=== PATIENT | male | born 1935 | race African-American/Black ===

== ENCOUNTER 2017-09-04 17:50 | Inpatient (IN) ==
--- NOTE | 2017-09-04 17:59 | Order Completion Report ---
See report scanned to EMR
[2017-09-04 18:28] LABS: Basophils # 0.1 10*3/uL (0.0-0.2); Eosinophils # 0.2 10*3/uL (0.0-0.87); Eosinophils % 3.7 % (0.00-10.9); Hematocrit 39.8 VOL% (42.0-52.0); Hemoglobin 13.6 GM/DL (14.0-18.0); Immature Granulocytes % 0.2 %; Immature Granulocytes Absolute 0.01 #; Lymphocytes # 1.7 10*3/uL (1.4-4.0); Lymphocytes % 26.8 % (21.2-54.2); Mean Corpuscular HGB Conc 34.2 GM/DL (32-36); Mean Corpuscular Hemoglobin 32 PG (27-34); Mean Corpuscular Volume 92.3 FL (87-102); Mean Platelet Volume 10.5 FL (9.6-12.0); Monocytes # 0.6 10*3/uL (0.11-0.8); Monocytes % 9.4 % (1.7-12.7); Neutrophils # 3.7 10*3/uL (1.4-7.4); Neutrophils % 58.9 % (38.7-73.9); Platelet Count 261 T/CUMM (130-400); Red Blood Count 4.31 MC/CUMM (3.8-5.5); Red Cell Distribution Width 13.3 % (9.3-17.3); White Blood Count 6.3 T/CUMM (4-12)
[2017-09-04 18:57] LABS: Alanine Aminotransferase 16 U/L (16-61); Albumin 3.7 G/DL (3.4-5.0); Alkaline Phosphatase 109 U/L (45-117); Aspartate Amino Transferase 19 U/L (0-37); Bilirubin,Total < 0.39 MG/DL (0.2-1.0); Blood Urea Nitrogen 43 MG/DL (7-18); Calcium 10.1 MG/DL (8.5-10.1); Glucose 128 MG/DL (74-106); Potassium 3.5 MMOL/L (3.5-5.1); Sodium 143 MMOL/L (136-145); Total Protein 8.6 G/DL (6.4-8.3)
[2017-09-04 18:58] LABS: Troponin I Only 0.074 NG/ML (0.00-0.045)
--- NOTE | 2017-09-04 19:00 | XRay Report ---
History: Chest pain Date: 09/04/2017 Study: Chest x-ray portable Comparison exam: No previous chest x-ray available There is mild cardiomegaly. There is no mediastinal mass. There is mild aortic arch calcification. The pulmonary vasculature is not engorged. The lungs are generally clear. There is no gross pleural effusion. A left subclavian dual-lead transvenous pacemaker is generally intact and in satisfactory position. There is mild thoracic spondylosis Impression: No definite acute process. Mild cardiomegaly. Pacemaker PROCEDURE INTERPRETED AT [facility] DEPARTMENT OF RADIOLOGY Final Report Signed by: Dr. Citlaly Schaffer
--- NOTE | 2017-09-04 19:03 | Emergency Department Note ---
Arrival - Arrival Chief Complaint: Chest Pain Stated Complaint: chest pains , sob ED Nursing Triage Note: C/o dull, right side chest pain and SOB-onset one hour ago. Denies nausea. Mode of Arrival: Wheelchair Time Seen by Provider: 09/04/17 18:17 - History of Present Illness HPI Narrative: This is an 81-year-old male of descent with a history of hypertension, type 2 diabetes, coronary artery disease, cardiomyopathy and congestive heart failure with the most recent echocardiogram in 2016 showing a left ventricular ejection fraction of 55%, pacer for sick sinus syndrome, chronic renal insufficiency stage III, hyperlipidemia, chronic atrial fibrillation on Coumadin , chronic constipation, multiple intermittent lower leg wounds due to peripheral vascular disease, progressive dementia who presents with chest pain and a feeling that he would pass out because of generalized the dizziness and weakness. The patient is still able to drive his car and drove to a friend's house. It was when he got out of his car and tried to stand up that he felt that he may pass out and came to the emergency department. Allergies/Adverse Reactions: Allergies Allergy/AdvReac Type Severity Reaction Status Date / Time No Known Allergies Allergy Verified 09/04/17 17:55 Home Medications: Home Medications Medication Instructions Recorded Confirmed Type Albuterol Sulfate [Ventolin HFA] 2 puffs PO Q4H PRN 09/04/17 09/04/17 History Amiodarone HCl [Pacerone] 200 mg PO DAILY 09/04/17 09/04/17 History Carvedilol [Coreg] 12.5 mg PO DAILY 09/04/17 09/04/17 History Donepezil [Aricept] 5 mg PO BEDTIME 09/04/17 09/04/17 History Furosemide Tab [Lasix Tab] 40 mg PO DAILY 09/04/17 09/04/17 History Glimepiride [Amaryl] 4 mg PO DAILY W/BREAKFAST 09/04/17 09/04/17 History Montelukast Tab [Singulair Tab] 10 mg PO DAILY 09/04/17 09/04/17 History Potassium Chloride 8 meq PO TID 09/04/17 09/04/17 History Pravastatin [Pravachol] 40 mg PO BEDTIME 09/04/17 09/04/17 History Tamsulosin [Flomax] 0.4 mg PO DAILY 09/04/17 09/04/17 History Warfarin [Coumadin] 4 mg PO MOTU 09/04/17 09/04/17 History Warfarin [Coumadin] 5 mg PO SUWETHFRSA 09/04/17 09/04/17 History cloNIDine TAB [Catapres Tab] 0.1 mg PO BEDTIME 09/04/17 09/04/17 History hydrALAZINE TAB [Apresoline Tab] 100 mg PO TID 09/04/17 09/04/17 History metOLazone [Metolazone] 2.5 mg PO DAILY 09/04/17 09/04/17 History Review of System - Review of System Constitutional: Absent: fever, night sweats Eyes: Absent: redness, vision change Head/Ears/Nose/Throat: Absent: epistaxis, nasal drainage Respiratory: Absent: respiratory distress Cardiovascular: Absent: dyspnea on exertion, orthopnea Gastrointestinal: Absent: diarrhea, constipation Genitourinary male: Absent: hematuria, discharge Musculoskeletal: Absent: arm pain, arthralgia Skin: Absent: change in color, change in hair/nails Neurological: Absent: headache, numbness Psychiatric: Absent: anxiety, depression Endocrine: Absent: polydipsia, polyuria Hematological/Lymphatic: Absent: easy bruising, lymphadenopathy Allergic/Immunologic: Absent: as per HPI, facial swelling Medical,Surgical,& Family Hx - Medical History Cardio: History of: Hypertension - Social History Smoking Status: Never smoker Frequency of Alcohol Use: None Type of Drug Use: None Exam Vital Signs: Vital Signs Temperature 97.9 F 09/05/17 03:44 Pulse Rate 60 09/05/17 03:44 Respiratory Rate 18 09/05/17 05:16 Blood Pressure 156/79 09/05/17 03:44 O2 Sat by Pulse Oximetry 98 09/05/17 03:44 - General General appearance: alert - Eye Eye exam: Present: PERRL, EOMI - ENT ENT exam: Present: normal exam, normal oropharynx - Neck Neck exam: Present: normal inspection, full ROM - Chest Chest inspection: Present: normal inspection, symmetric chest wall rise - Respiratory Respiratory exam: Present: normal lung sounds bilaterally - Cardiovascular Cardiovascular exam: Present: regular rate, normal rhythm - Abdominal Exam Abdominal exam: Present: soft, normal bowel sounds - Extremities Exam Extremities exam: Present: normal inspection, full ROM - Back Exam Back exam: Present: normal inspection, full ROM - Neurological Exam Neurological exam: Present: alert, oriented X3, CN II-XII intact - Psychiatric Psychiatric exam: Present: normal affect, normal mood - Skin Skin exam: Present: warm, dry Course Course Narrative: Because the patient had chest pain and slightly elevated troponin it seems reasonable that he should be admitted to the hospital for further evaluation and treatment. The case was discussed with Dr. Roberson. Orders were written for Dr. Roberson for admission. Results - Labs CBC & BMP: 09/04/17 18:16 09/04/17 18:16 Disposition Clinical Impression: Chest pain, Elevated troponin Disposition: Still a Patient Condition: Stable
[2017-09-04 20:22] LABS: INR 1.9; PT Patient Result 19.8 SECS; Partial Thromboplastin Time 36.1 SECS (0-40)
[2017-09-04] MEDS ORDERED: ONDANSETRON 4 MG/2 ML VIAL IV PRN (21:14)
[2017-09-04] MEDS: cloNIDine 0.1 MG TABLET PO SCH (23:11)
[2017-09-05] MEDS: DOCUSATE SODIUM 100 MG CAPSULE PO SCH ×2 (09:00→21:13)
[2017-09-05] MEDS: cloNIDine 0.1 MG TABLET PO SCH ×3 (09:00→21:13)
[2017-09-05] MEDS: PANTOPRAZOLE 40 MG TABLET PO SCH (09:00)
--- NOTE | 2017-09-05 11:13 | Internal Med History&Physical ---
Assessment and Plan (1) Hypertension Status: Chronic Current Visit: Yes Qualifiers: Hypertension type: essential hypertension Qualified Code(s): I10 - Essential (primary) hypertension (2) Diabetes Status: Chronic Current Visit: Yes Qualifiers: Diabetes mellitus type: type 2 Diabetes mellitus complication status: with hyperglycemia Diabetes mellitus tank terminal gauger insulin use: without senior living use Qualified Code(s): E11.65 - Type 2 diabetes mellitus with hyperglycemia (3) Obstructive sleep apnea Status: Chronic Current Visit: Yes (4) Chest pain Problem details: atypical Status: Acute Current Visit: Yes Qualifiers: Chest pain type: other chest pain Qualified Code(s): R07.89 - Other chest pain; R07.8 - Other chest pain (5) Elevated troponin Status: Chronic Current Visit: Yes (6) Chronic renal insufficiency, stage III (moderate) Problem details: Dr. Banegas Status: Chronic Current Visit: Yes History of Present Illness Chief complaint: chest pain History of present illness: Mr. Mishra is a 81 year old male with history of DM, HTN, chronic renal insufficiency, peripheral edema, COPD, asthmatic bronchitis, mild cardiomyopathy with LVEF 45%, severe left ventricular hypertrophy, paroxysmal atrial fibrillation and on Coumadin therapy, OA with joint replacements, dementia, who presented to ER with persistent intermittent chest pain. Have consulted Dr. Gomez to further evaluate. He has chronically elevated troponins. Also, consulting Dr. Tristan to further evaluate high suspicion of sleep apnea. Home Medications Medication Instructions Recorded Confirmed Type Albuterol Sulfate [Ventolin HFA] 2 puffs PO Q4H PRN 09/04/17 09/05/17 History Amiodarone HCl [Pacerone] 200 mg PO DAILY 09/04/17 09/05/17 History Carvedilol [Coreg] 12.5 mg PO DAILY 09/04/17 09/05/17 History Donepezil [Aricept] 5 mg PO BEDTIME 09/04/17 09/04/17 History Furosemide Tab [Lasix Tab] 40 mg PO DAILY 09/04/17 09/05/17 History Glimepiride [Amaryl] 4 mg PO DAILY W/BREAKFAST 09/04/17 09/05/17 History Montelukast Tab [Singulair Tab] 10 mg PO DAILY 09/04/17 09/05/17 History Potassium Chloride 8 meq PO TID 09/04/17 09/05/17 History Pravastatin [Pravachol] 40 mg PO BEDTIME 09/04/17 09/05/17 History Tamsulosin [Flomax] 0.4 mg PO DAILY 09/04/17 09/05/17 History Warfarin [Coumadin] 4 mg PO MOWEFR 09/04/17 09/05/17 History cloNIDine TAB [Catapres Tab] 0.1 mg PO BEDTIME 09/04/17 09/05/17 History hydrALAZINE TAB [Apresoline Tab] 100 mg PO TID 09/04/17 09/05/17 History metOLazone [Metolazone] 2.5 mg PO DAILY 09/04/17 09/05/17 History Allergies Allergy/AdvReac Type Severity Reaction Status Date / Time No Known Allergies Allergy Verified 09/04/17 17:55 Medical,Surgical,& Family Hx - Medical History Cardio: History of: Hypertension, Pacemaker, PVD Neurology: History of: Dementia, Migraine HEENT: History of: HEENT Problems (sinus drainage) Endocrine: History of: Diabetes Mellitus (NIDDM) Rheumatology: History of;: Gout Respiratory: History of: Asthma, COPD, Obstructive Sleep Apnea Genitourinary: History of: Prostate Problems Gastrointestinal: History of: GERD Musculoskeletal: History of: Back/Neck Problems, Musculoskeletal Problems Hematology: History of: Anemia - Surgical History Cardiac Surgeries: Sugical HX of: Cardiac Catheterization Orthopedic Surgeries: Surgical HX of;: Total Hip Replacement, Total Knee Replacement - Family History Family History: Reports;: Family Diabetes ("most everybody in the family") - Social History Smoking Status: Never smoker Frequency of Alcohol Use: None Type of Drug Use: None Lives With:: Alone Functional capacity: uses cane/walker - Constitutional Constitutional: Present: fatigue, weakness - Cardiovascular Cardiovascular: Present: chest pain with activity - Respiratory Respiratory: Present: dyspnea on exertion - Gastrointestinal Gastrointestinal: Absent: nausea, vomiting - Musculoskeletal Musculoskeletal: Present: arthralgias - Neurological Neurological: Present: memory loss Exam - Constitutional Vitals: Period Temp Pulse Resp BP Sys/Xavier Pulse Ox Last 24 Hr 97.2 F-98.0 F 60-96 17-23 144-224/75-102 93-100 General appearance: no acute distress - Head Head exam: Present: normocephalic - Eye Eye exam: Present: EOMI - Respiratory Respiratory exam: Present: clear to auscultation bilaterally - Cardiovascular Cardiovascular exam: Present: regular rate and rhythm - GI/Abdominal GI/Abdominal exam: Present: soft. Absent: tenderness - Extremities Exam Extremities exam: Present: edema (trace) - Neurological Exam Neurological exam: Present: alert - Psychiatric Psychiatric exam: Present: normal mood - Skin Skin exam: Present: warm, dry Results - Labs CBC & BMP: 09/04/17 18:16 09/04/17 18:16 - EKG EKG shows: sinus rhythm - Diagnostic Findings Procedure: Chest x-ray: report reviewed by me Quality Measures - VTE Contraindication to Pharmacological VTE Prophylaxis: High Risk of Bleeding
[2017-09-05 12:23] LABS: Magnesium 2.3 MG/DL (1.8-2.4); Uric Acid 12.5 MG/DL (3.5-7.2)
[2017-09-05] MEDS: CARVEDILOL 12.5 MG TABLET PO SCH (13:38)
[2017-09-05] MEDS: POTASSIUM CHLORIDE 10 MEQ TABLET PO SCH (13:38)
[2017-09-05] MEDS: FUROSEMIDE 40 MG TABLET PO SCH (13:38)
[2017-09-05] MEDS: MONTELUKAST 10 MG TABLET PO SCH (13:39)
[2017-09-05] MEDS: metOLazone 2.5 MG TABLET PO SCH (13:39)
[2017-09-05] MEDS: GLIMEPIRIDE 4 MG TABLET PO SCH (13:39)
[2017-09-05] MEDS: AMIODARONE 200 MG TABLET PO SCH (13:39)
--- NOTE | 2017-09-05 13:40 | Nuclear Medicine Report ---
History: Shortness of breath and chest pain Date: 09/05/2017 Study: Nuclear medicine ventilation/perfusion lung scan Comparison exam: No previous similar available Following the inhalation of 40 mCi aerosolized technetium 99m DTPA, images were obtained over the lungs in 6 projections for the purpose of a ventilation study. Then, following the IV administration of 5 mCi technetium 99m MAA, images were acquired of the lungs in the same projections for the purpose of a perfusion scan. There is no moderate or large unmatched segmental perfusion defect within either lung. There are some small areas of matched decreased ventilation and perfusion in the lower lobes in which the ventilation abnormalities are more numerous and larger than the perfusion abnormalities. There is no corresponding confluent infiltrate on the chest x-ray performed the following evening. Impression: The study is abnormal, but is considered low probability for pulmonary embolic disease PROCEDURE INTERPRETED AT [facility] DEPARTMENT OF RADIOLOGY Final Report Signed by: Dr. Citlaly Schaffer
--- NOTE | 2017-09-05 14:08 | Order Completion Report ---
See report scanned to EMR
--- NOTE | 2017-09-05 15:58 | Order Completion Report ---
See report scanned to EMR
[2017-09-05] MEDS: PRAVASTATIN 40 MG TABLET PO SCH (21:13)
[2017-09-05] MEDS: DONEPEZIL 5 MG TABLET PO SCH (21:13)
--- NOTE | 2017-09-05 21:48 | Order Completion Report ---
See report scanned to EMR
[2017-09-06] MEDS: ACETAMINOPHEN 325 MG TABLET PO PRN (05:10)
[2017-09-06 06:58] LABS: INR 1.7
[2017-09-06 07:12] LABS: Albumin 3.2 G/DL (3.4-5.0); Bilirubin,Total 0.5 MG/DL (0.2-1.0); Calcium 9.5 MG/DL (8.5-10.1); Osmolality,Calculated 291.3 MOS/KG (273-304); Phosphorous 2.9 MG/DL (2.5-4.9); Potassium 3.9 MMOL/L (3.5-5.1); Risk Ratio 2.43; VLDL CHOLESTEROL 33.4 MG/DL
[2017-09-06] MEDS: AMIODARONE 200 MG TABLET PO SCH (08:49)
[2017-09-06] MEDS: POTASSIUM CHLORIDE 10 MEQ TABLET PO SCH (08:49)
[2017-09-06] MEDS: GLIMEPIRIDE 4 MG TABLET PO SCH (08:50)
[2017-09-06] MEDS: FUROSEMIDE 40 MG TABLET PO SCH (08:50)
[2017-09-06] MEDS: metOLazone 2.5 MG TABLET PO SCH (08:50)
[2017-09-06] MEDS: PANTOPRAZOLE 40 MG TABLET PO SCH (08:50)
[2017-09-06] MEDS: ALLOPURINOL 100 MG TABLET PO SCH (08:50)
[2017-09-06] MEDS: DOCUSATE SODIUM 100 MG CAPSULE PO SCH ×2 (08:50→20:52)
[2017-09-06] MEDS: MONTELUKAST 10 MG TABLET PO SCH (08:50)
[2017-09-06] MEDS: CARVEDILOL 12.5 MG TABLET PO SCH (08:50)
--- NOTE | 2017-09-06 16:50 | Internal Med Progress Note ---
Assessment and Plan (1) Hypertension Status: Chronic Current Visit: Yes Qualifiers: Hypertension type: essential hypertension Qualified Code(s): I10 - Essential (primary) hypertension (2) Diabetes Status: Chronic Current Visit: Yes Qualifiers: Diabetes mellitus type: type 2 Diabetes mellitus complication status: with hyperglycemia Diabetes mellitus superintendent terminal insulin use: without mcc use Qualified Code(s): E11.65 - Type 2 diabetes mellitus with hyperglycemia (3) Obstructive sleep apnea Status: Chronic Current Visit: Yes (4) Chest pain Problem details: atypical Status: Acute Current Visit: Yes Qualifiers: Chest pain type: other chest pain Qualified Code(s): R07.89 - Other chest pain; R07.8 - Other chest pain (5) Elevated troponin Status: Chronic Current Visit: Yes (6) Chronic renal insufficiency, stage III (moderate) Problem details: Dr. Banegas Status: Chronic Current Visit: Yes Internal Medicine - PN: Subj Interval history: Mr. Mishra is a 81 year old male with history of DM, HTN, chronic renal insufficiency, peripheral edema, COPD, asthmatic bronchitis, mild cardiomyopathy with LVEF 45%, severe left ventricular hypertrophy, paroxysmal atrial fibrillation and on Coumadin therapy, OA with joint replacements, dementia, who presented to ER with persistent intermittent chest pain. Have consulted Dr. Gomez to further evaluate. He has chronically elevated troponins. Also, consulting Dr. Tristan to further evaluate high suspicion of sleep apnea. September 06: Feeling better today and more alert. Exam (Progress Note) - Constitutional Vitals: Period Temp Pulse Resp BP Sys/Xavier Pulse Ox Last 24 Hr 97.4 F-98.6 F 59-62 16-20 131-189/66-90 92-96 Exam: General appearance: no acute distress - Respiratory Respiratory exam: Present: clear to auscultation bilaterally - Cardiovascular Cardiovascular exam: Present: regular rate and rhythm - GI/Abdominal GI/Abdominal exam: Present: soft. Absent: tenderness - Extremities Exam Extremities exam: Present: no edema - Neurological Exam Neurological exam: Present: alert - Psychiatric Psychiatric exam: Present: normal mood - Skin Skin exam: Present: warm, dry Results - Labs CBC & BMP: 09/04/17 18:16 09/06/17 05:19 Quality Measures - VTE Contraindication to Pharmacological VTE Prophylaxis: High Risk of Bleeding
[2017-09-06] MEDS: DONEPEZIL 5 MG TABLET PO SCH (20:52)
[2017-09-06] MEDS: PRAVASTATIN 40 MG TABLET PO SCH (20:52)
[2017-09-07 06:00] LABS: INR 1.5; PT Patient Result 15.8 SECS
[2017-09-07 06:39] LABS: Albumin 3.1 G/DL (3.4-5.0); Bilirubin,Total 0.7 MG/DL (0.2-1.0); Calcium 9.4 MG/DL (8.5-10.1); Osmolality,Calculated 286.7 MOS/KG (273-304); Potassium 3.4 MMOL/L (3.5-5.1); Total Protein 6.9 G/DL (6.4-8.3)
--- NOTE | 2017-09-07 07:58 | Cardiology Consult Note ---
Assessment and Plan - Time spent with patient Time spent with patient: Greater than 30 minutes (1) Dyslipidemia Status: Chronic Assessment and plan: SEE PLAN OF CARE LISTED BELOW Current Visit: Yes (2) PAF (paroxysmal atrial fibrillation) Status: Chronic Assessment and plan: SEE PLAN OF CARE LISTED BELOW Current Visit: Yes (3) Cardiomyopathy Status: Chronic Assessment and plan: SEE PLAN OF CARE LISTED BELOW Current Visit: Yes Qualifiers: Cardiomyopathy type: unspecified Qualified Code(s): I42.9 - Cardiomyopathy , unspecified (4) Chest pain Problem details: atypical Status: Acute Assessment and plan: SEE PLAN OF CARE LISTED BELOW Current Visit: Yes Qualifiers: Chest pain type: other chest pain Qualified Code(s): R07.89 - Other chest pain; R07.8 - Other chest pain (5) Chronic renal insufficiency, stage III (moderate) Problem details: Dr. Banegas Status: Chronic Assessment and plan: SEE PLAN OF CARE LISTED BELOW Current Visit: Yes (6) Diabetes Status: Chronic Assessment and plan: SEE PLAN OF CARE LISTED BELOW Current Visit: Yes Qualifiers: Diabetes mellitus type: type 2 Diabetes mellitus complication status: with hyperglycemia Diabetes mellitus terminal gauger insulin use: without terminal gauger use Qualified Code(s): E11.65 - Type 2 diabetes mellitus with hyperglycemia (7) Elevated troponin Status: Chronic Assessment and plan: SEE PLAN OF CARE LISTED BELOW Current Visit: Yes (8) Hypertension Status: Chronic Assessment and plan: SEE PLAN OF CARE LISTED BELOW Current Visit: Yes Qualifiers: Hypertension type: essential hypertension Qualified Code(s): I10 - Essential (primary) hypertension History of Present Illness - Data of Consult Patient: new to practice Consult date: 09/07/17 Requesting Physician: Lucille Wagner Primary care physician: Lucille Wagner - Consult Narrative Reason for consult: chest pain History of present illness: GENERAL ACCOUNTING MANAGER: DR. PENG PCP: DR. LUCILLE WAGNER Mr. Mishra, 81WM, with risk factors significant for advanced age, hypertension, dyslipidemia, diabetes. History of PPM (sick sinus syndrome), chronic renal insufficiency (stage III), cardiomyopathy (EF 45-50% - improved from 30%), PAF ( Coumadin for stroke prevention, managed by Dr. Lucille Wagner), history of noncompliance. Cardiolite stress test October 26, 2014: No evidence of reversible ischemia. Last seen in cardiology clinic May 2016. Admitted for complaints of right-sided chest pain, chronically elevated troponins. Patient reports he is very active and can perform his activities without recurrent chest pain. Thursday afternoon, he began to experience a right sided chest discomfort described as "just a pain" without radiation, nausea or vomiting but was associated with eating "dizzy in my head". Initially this occurred while he was outside working. Improved but when he went to eat supper, he got out of his vehicle when he began to feel lightheaded yet again. Because of the general fatigue, lightheadedness and chest discomfort he felt as if he should be evaluated in the emergency department. This has continued intermittently while he is at rest and can identify no aggravating nor any alleviating factors. He is unable to rate the discomfort on a scale of 1-10, currently chest pain-free. Cardiology was consulted for evaluation of chest pain, chronically elevated troponin (0.055-0.088). EKG does not reveal acute WI. Echocardiogram 09/05/2017: EF 45-55%, moderate to severe concentric LVH, mild to moderate aortic regurgitation. Patient was admitted for and treated for pneumonia over the summer 2016. Chest x-ray unremarkable. VQ lung scan: Abnormal but low probability for pulmonary embolic disease. Blood pressure significantly elevated on arrival. I will initiate low-dose Aspirin, continue Amiodarone, betablockade, Pravastatin (LDL 40). Avoiding JOSETTE inhibitors for fear of worsening his renal insufficiency. Will add long acting nitroglycerin in combination with his Hydralazine. INR 1.5 this morning. Further discuss with Dr. Edwards and await additional recommendations. IMPRESSION/PLAN: 1. CHEST PAIN - atypical for angina. At some point, may be a candidate for further workup such as cardiolite stress test. Cardiac catheterization will be avoided if at all possible due to fear of worsening his renal insufficiency. 2. CHRONICALLY ELEVATED TROPONIN - flat. This does not represent NSTEMI. CPK , CK-MB WNL. EKG stable 3. HYPERTENSION - suboptimally controlled. Will increase his Carvedilol, adjust medications accordingly. 4. DYSLIPIDEMIA - continue lipid-lowering agent. LDL at goal. 5. CKD, STAGE III - previously followed by sheet manufacturing supervisor. He has not followed up with him recently. Avoiding nephrotoxic agents such as JOSETTE inhibitors 6. CARDIOMYOPATHY -long-standing history of cardiomyopathy. Never had heart catheterization due to history of noncompliance and fear of worsening his renal insufficiency. However, ejection fraction has improved since prior study when the echo previously revealed EF of 30%. Now 45-55% 7. PAF - currently taking 200 mg Amiodarone daily. Rate is controlled. May consider decreasing dose to 100 mg daily given his renal insufficiency. 8. DIABETES - treating with sliding scale as needed. 9. NON-COMPLIANCE - has not followed up with cardiology in quite some time. He tells me he is interested in following up with Dr. parisi when he gets out of the hospital. CC: Lucille Wagner, DO - Home Medications and Allergies Home Medications: Home Medications Medication Instructions Recorded Confirmed Type Albuterol Sulfate [Ventolin HFA] 2 puffs PO Q4H PRN 09/04/17 09/05/17 History Amiodarone HCl [Pacerone] 200 mg PO DAILY 09/04/17 09/05/17 History Carvedilol [Coreg] 12.5 mg PO DAILY 09/04/17 09/05/17 History Donepezil [Aricept] 5 mg PO BEDTIME 09/04/17 09/04/17 History Furosemide Tab [Lasix Tab] 40 mg PO DAILY 09/04/17 09/05/17 History Glimepiride [Amaryl] 4 mg PO DAILY W/BREAKFAST 09/04/17 09/05/17 History Montelukast Tab [Singulair Tab] 10 mg PO DAILY 09/04/17 09/05/17 History Potassium Chloride 8 meq PO TID 09/04/17 09/05/17 History Pravastatin [Pravachol] 40 mg PO BEDTIME 09/04/17 09/05/17 History Tamsulosin [Flomax] 0.4 mg PO DAILY 09/04/17 09/05/17 History Warfarin [Coumadin] 4 mg PO MOWEFR 09/04/17 09/05/17 History cloNIDine TAB [Catapres Tab] 0.1 mg PO BEDTIME 09/04/17 09/05/17 History hydrALAZINE TAB [Apresoline Tab] 100 mg PO TID 09/04/17 09/05/17 History metOLazone [Metolazone] 2.5 mg PO DAILY 09/04/17 09/05/17 History Allergies/Adverse Reactions: Allergies Allergy/AdvReac Type Severity Reaction Status Date / Time No Known Allergies Allergy Verified 09/04/17 17:55 Review of systems: REVIEW OF SYSTEMS: - Constitutional Constitutional: Present: Fatigue. Absent: syncope, anorexia, night sweats - EENT Eyes: Absent: blurry vision, loss of vision, diplopia Ears: Absent: decreased hearing, ear pain, ear discharge - Cardiovascular Cardiovascular: Present: chest pain at rest. Denies chest pain with exertion, denies dyspnea on exertion, edema, palpitations. Absent: chest pain with deep breath, claudication - Respiratory Respiratory: Denies: FAJARDO, cough. Absent: wheezing, hemoptysis, change in phlegm color - Gastrointestinal Gastrointestinal: Present: constipation. Absent: abdominal pain, hematemesis , hematochezia, melena, change in bowel habits, nausea - Genitourinary Genitourinary: Absent: difficulty urinating, dysuria, urinary hesitancy, flank pain - Musculoskeletal Musculoskeletal: Present: back pain Absent: joint swelling, muscle cramps, muscle weakness - Neurological Neurological: Present: Poor gait without frequent falls. Absent: dizziness, hemiparesis - Psychiatric Psychiatric: Absent: anxiety, depression, difficulty concentrating - Endocrine Endocrine: Absent: cold intolerance, heat intolerance, polyuria, polyphagia, polydipsia - Hematologic/Lymphatic Hematologic/Lymphatic: Present: easy bruising. Absent: easy bleeding -Integumentary Integumentary: Absent: lesions, rashes, skin breakdown Medical,Surgical,& Family Hx - Medical History Cardio: History of: Cardiac Dysrhythmia, Hypertension, Pacemaker, PVD No history of: CAD Neurology: History of: Dementia, Migraine HEENT: History of: HEENT Problems (sinus drainage) Endocrine: History of: Diabetes Mellitus (NIDDM) Rheumatology: History of;: Gout Respiratory: History of: Asthma, COPD, Obstructive Sleep Apnea Genitourinary: History of: Prostate Problems Gastrointestinal: History of: GERD Musculoskeletal: History of: Back/Neck Problems, Musculoskeletal Problems Hematology: History of: Anemia - Surgical History Cardiac Surgeries: Sugical HX of: Cardiac Catheterization Orthopedic Surgeries: Surgical HX of;: Total Hip Replacement, Total Knee Replacement - Family History Family History: Reports;: Family Diabetes ("most everybody in the family") - Social History Smoking Status: Never smoker Have you smoked in the last 12 months: No Frequency of Alcohol Use: None Type of Drug Use: None Marital Status: Lives With:: Alone Functional capacity: uses cane/walker Physical Examination Vital Signs Temp Pulse Resp BP Pulse Ox 97.9 F 87 18 181/99 94 L 09/04/17 17:51 09/04/17 17:51 09/04/17 17:51 09/04/17 17:51 09/04/17 17:51 Exam: General: [Appears well with no apparent distress.] [Pleasant and cooperative. ] [Appears comfortable.] HEENT: [Bilateral arcus, normocephalic, atraumatic. Mucous membranes moist. No jaundice noted. Conjunctiva moist and clear, sclerae anicteric] Neck: No JVD/HJR, no thyromegaly or lymphadenopathy noted. Soft bilateral carotid bruit appreciated Cardiac: [Regular rate and rhythm.] [No obvious murmur, rub or gallop.] Nontender chest wall. Lungs: [Clear to auscultation without accessory muscle use to assist the respiratory pattern.] Not requiring oxygen Abdomen: Soft, bowel sounds normoactive. Nontender and nondistended. No abdominal bruit or thrill noted. No masses noted. Musculoskeletal: No fluid collection. Decreased range of motion is noted. Extremities: No clubbing, cyanosis noted. [Trace ankle edema bilaterally noted. ] Upper extremity pulses 2+. Lower extremity pulses 1+. Capillary refill less than 3 seconds. Skin: No unusual lesions or rashes. No skin breakdown appreciated. Neuro: Awake, alert and oriented 3. Moves all extremities well without hemiparesis or paralysis. No essential tremor is appreciated. Result/EKG - Labs CBC & BMP: 09/04/17 18:16 09/07/17 04:57 Lab Results: I have reviewed the past 24 hour labs Labs: Laboratory Results - last 24 hr 09/06/17 09/07/17 09/07/17 15:42 04:57 04:57 INR 1.5 PT Patient/Control Mix 15.8 Sodium 138 Potassium 3.4 L Chloride 100 Carbon Dioxide 27 Anion Gap 14.4 BUN 41 H Creatinine 2.70 H GFR Calculation 31 BUN/Creatinine Ratio 15.00 Glucose 131 H POC Glucose 154 H Calculated Osmolality 286.7 Calcium 9.4 Total Bilirubin 0.70 AST 15 ALT 15 L Alkaline Phosphatase 94 Total Protein 6.9 Albumin 3.1 L Globulin 3.8 H Albumin/Globulin Ratio 0.8 L - Diagnostic Findings Procedure: Chest x-ray: report reviewed by me, X-ray: report reviewed by me (VQ lung scan) - EKG EKG results: interpreted by me EKG shows: sinus rhythm Quality Measures - VTE Contraindication to Pharmacological VTE Prophylaxis: High Risk of Bleeding
[2017-09-07] MEDS: ISOSORBIDE MONONITRATE 30 MG TABLET PO SCH (08:56)
[2017-09-07] MEDS: GLIMEPIRIDE 4 MG TABLET PO SCH (08:57)
[2017-09-07] MEDS: FUROSEMIDE 40 MG TABLET PO SCH (08:57)
[2017-09-07] MEDS: PANTOPRAZOLE 40 MG TABLET PO SCH (08:58)
[2017-09-07] MEDS: metOLazone 2.5 MG TABLET PO SCH (08:58)
[2017-09-07] MEDS: ASPIRIN EC 81 MG TABLET PO SCH (08:58)
[2017-09-07] MEDS: DOCUSATE SODIUM 100 MG CAPSULE PO SCH ×2 (08:58→20:56)
[2017-09-07] MEDS: POTASSIUM CHLORIDE 10 MEQ TABLET PO SCH (08:59)
[2017-09-07] MEDS: ALLOPURINOL 100 MG TABLET PO SCH (08:59)
[2017-09-07] MEDS: CARVEDILOL 25 MG TABLET PO SCH ×2 (08:59→20:56)
[2017-09-07] MEDS: MONTELUKAST 10 MG TABLET PO SCH (08:59)
[2017-09-07] MEDS: AMIODARONE 200 MG TABLET PO SCH (08:59)
[2017-09-07] MEDS ORDERED: BISACODYL 5 MG TABLET PO ONE (10:06)
--- NOTE | 2017-09-07 12:17 | Ultrasound Report ---
US carotid duplex BI Indication: Bilateral bruits. Comparison: None. Technique: Multiple longitudinal and transverse real-time sonographic images of the bilateral carotid arterial systems are obtained with grayscale, spectral, and color Doppler analysis. Findings: Peak systolic velocities within the right CCA, proximal ICA, and distal ICA are 57, 49, and 66 cm/s respectively. Peak systolic velocities within the left CCA, proximal ICA, and distal ICA are 66, 61, and 53 cm/s respectively. ICA/CCA ratios on the right and left are 1.2 and 0.9 respectively. Antegrade flow demonstrated within the bilateral vertebral arteries. Grayscale imaging demonstrates mild bilateral atherosclerotic plaque. IMPRESSION: No convincing sonographic evidence of significant (50% or greater) narrowing of either cervical internal carotid artery. Indirect NASCET criteria utilized. PROCEDURE INTERPRETED AT [facility] DEPARTMENT OF RADIOLOGY Final Report Signed by: Dr Stevie Duenas
--- NOTE | 2017-09-07 12:46 | Sleep Medicine Consult ---
Assessment and Plan (1) Unspecified sleep apnea Status: Acute Assessment and plan: His history certainly is concerning for sleep apnea with his history of snoring and disrupted sleep. We will proceed with home sleep testing tonight and follow -up results. Current Visit: Yes (2) Hypertension Status: Chronic Assessment and plan: The prevalence rate for obstructive sleep apnea patients with hypertension is 35 %. That rate can be as high as 80% in patients who require 4 or more medications for blood pressure control. Current Visit: Yes Qualifiers: Hypertension type: essential hypertension Qualified Code(s): I10 - Essential (primary) hypertension (3) Diabetes Status: Chronic Assessment and plan: The prevalence rate for obstructive sleep apnea in patients with type 2 diabetes can be as high as 86%. Those patients with moderate to severe obstructive sleep apnea are at a greater risk for diabetic nephropathy and neuropathy. Compliance with CPAP therapy for these patients can lead to improvement in glycemic control and improvement in insulin sensitivity. Current Visit: Yes Qualifiers: Diabetes mellitus type: type 2 Diabetes mellitus complication status: with hyperglycemia Diabetes mellitus terminal supervisor insulin use: without senior living use Qualified Code(s): E11.65 - Type 2 diabetes mellitus with hyperglycemia (4) PAF (paroxysmal atrial fibrillation) Status: Chronic Assessment and plan: Untreated sleep apnea can be a risk factor for causing atrial fibrillation. Treating the underlying sleep apnea can reduce recurrence rate of atrial fib almost 50%. Current Visit: Yes History of Present Illness Chief complaint: Sleep apnea History of present illness: Mr. Mishra is a 81 year old male admitted with chest pain and shortness of breath. He had elevated troponins. Sleep medicine was consulted. He does have a history of snoring but is never been told that he stops breathing during his sleep. He denies awakening from sleep short of breath. Usually retires between 1030 and 11 PM and awakens about 6 AM. He will awaken 4-5 times a night to urinate. He does experience fatigue and sleepiness during the day. He is a , his in 1998. He lives by himself. Home Medications Medication Instructions Recorded Confirmed Type Albuterol Sulfate [Ventolin HFA] 2 puffs PO Q4H PRN 09/04/17 09/05/17 History Amiodarone HCl [Pacerone] 200 mg PO DAILY 09/04/17 09/05/17 History Carvedilol [Coreg] 12.5 mg PO DAILY 09/04/17 09/05/17 History Donepezil [Aricept] 5 mg PO BEDTIME 09/04/17 09/04/17 History Furosemide Tab [Lasix Tab] 40 mg PO DAILY 09/04/17 09/05/17 History Glimepiride [Amaryl] 4 mg PO DAILY W/BREAKFAST 09/04/17 09/05/17 History Montelukast Tab [Singulair Tab] 10 mg PO DAILY 09/04/17 09/05/17 History Potassium Chloride 8 meq PO TID 09/04/17 09/05/17 History Pravastatin [Pravachol] 40 mg PO BEDTIME 09/04/17 09/05/17 History Tamsulosin [Flomax] 0.4 mg PO DAILY 09/04/17 09/05/17 History Warfarin [Coumadin] 4 mg PO MOWEFR 09/04/17 09/05/17 History cloNIDine TAB [Catapres Tab] 0.1 mg PO BEDTIME 09/04/17 09/05/17 History hydrALAZINE TAB [Apresoline Tab] 100 mg PO TID 09/04/17 09/05/17 History metOLazone [Metolazone] 2.5 mg PO DAILY 09/04/17 09/05/17 History Allergies Allergy/AdvReac Type Severity Reaction Status Date / Time No Known Allergies Allergy Verified 09/04/17 17:55 Review of systems: Review of systems otherwise unremarkable. Exam (Pulmonay) H&P - Constitutional Vitals: Period Temp Pulse Resp BP Sys/Xavier Pulse Ox Last 24 Hr 97.5 F-98.6 F 60-62 16-20 127-189/71-84 93-100 Exam: He is alert and responsive in no acute distress. Pupils equal round reactive to light and accommodation. Extraocular movements intact. Oropharynx with a class III Mallampati exam. Neck is supple without adenopathy or thyromegaly. No supraclavicular adenopathy is noted. Chest with symmetrical breath sounds without focal wheeze, rhonchi, or rales. Cardiac exam reveals a regular rhythm without murmur or gallop. Abdomen soft nontender without palpable hepatosplenomegaly or mass. Extremities are without clubbing, cyanosis, or edema. Neurologically, he is grossly intact. He moves all extremities with good strength and ambulates with a normal gait. Medical,Surgical,& Family Hx - Medical History Cardio: History of: Cardiac Dysrhythmia, Hypertension, Pacemaker, PVD No history of: CAD Neurology: History of: Dementia, Migraine HEENT: History of: HEENT Problems (sinus drainage) Endocrine: History of: Diabetes Mellitus (NIDDM) Rheumatology: History of;: Gout Respiratory: History of: Asthma, COPD, Obstructive Sleep Apnea Genitourinary: History of: Prostate Problems Gastrointestinal: History of: GERD Musculoskeletal: History of: Back/Neck Problems, Musculoskeletal Problems Hematology: History of: Anemia - Surgical History Cardiac Surgeries: Sugical HX of: Cardiac Catheterization Orthopedic Surgeries: Surgical HX of;: Total Hip Replacement, Total Knee Replacement - Family History Family History: Reports;: Family Diabetes ("most everybody in the family") - Social History Smoking Status: Never smoker Frequency of Alcohol Use: None Type of Drug Use: None Results - Labs CBC & BMP: 09/04/17 18:16 09/07/17 04:57 Quality Measures - VTE Contraindication to Pharmacological VTE Prophylaxis: High Risk of Bleeding
[2017-09-07] MEDS: WARFARIN 4 MG TABLET PO SCH (15:38)
[2017-09-07] MEDS: DONEPEZIL 5 MG TABLET PO SCH (20:56)
[2017-09-07] MEDS: PRAVASTATIN 40 MG TABLET PO SCH (20:57)
[2017-09-07] MEDS: BISACODYL 5 MG TABLET PO PRN (20:57)
--- NOTE | 2017-09-07 23:04 | Internal Med Progress Note ---
Assessment and Plan (1) Hypertension Status: Chronic Current Visit: Yes Qualifiers: Hypertension type: essential hypertension Qualified Code(s): I10 - Essential (primary) hypertension (2) Diabetes Status: Chronic Current Visit: Yes Qualifiers: Diabetes mellitus type: type 2 Diabetes mellitus complication status: with hyperglycemia Diabetes mellitus petroleum terminal plant operator insulin use: without residential use Qualified Code(s): E11.65 - Type 2 diabetes mellitus with hyperglycemia (3) Obstructive sleep apnea Status: Chronic Current Visit: Yes (4) Chest pain Problem details: atypical Status: Acute Current Visit: Yes Qualifiers: Chest pain type: other chest pain Qualified Code(s): R07.89 - Other chest pain; R07.8 - Other chest pain (5) Elevated troponin Status: Chronic Current Visit: Yes (6) Chronic renal insufficiency, stage III (moderate) Problem details: Dr. Banegas Status: Chronic Current Visit: Yes Internal Medicine - PN: Subj Interval history: Mr. Mishra is a 81 year old male with history of DM, HTN, chronic renal insufficiency, peripheral edema, COPD, asthmatic bronchitis, mild cardiomyopathy with LVEF 45%, severe left ventricular hypertrophy, paroxysmal atrial fibrillation and on Coumadin therapy, OA with joint replacements, dementia, who presented to ER with persistent intermittent chest pain. Have consulted Dr. Gomez to further evaluate. He has chronically elevated troponins. Also, consulting Dr. Tristan to further evaluate high suspicion of sleep apnea. September 06: Feeling better today and more alert. September 07: Undergoing hospital sleep study tonight Exam (Progress Note) - Constitutional Vitals: Period Temp Pulse Resp BP Sys/Xavier Pulse Ox Last 24 Hr 97.4 F-98.4 F 60-71 18-23 134-156/68-78 92-100 Exam: General appearance: no acute distress - Respiratory Respiratory exam: Present: clear to auscultation bilaterally - Cardiovascular Cardiovascular exam: Present: regular rate and rhythm - GI/Abdominal GI/Abdominal exam: Present: soft. Absent: tenderness - Extremities Exam Extremities exam: Present: no edema - Neurological Exam Neurological exam: Present: alert - Psychiatric Psychiatric exam: Present: normal mood - Skin Skin exam: Present: warm, dry Results - Labs CBC & BMP: 09/08/17 04:30 09/08/17 04:30 Quality Measures - VTE Contraindication to Pharmacological VTE Prophylaxis: High Risk of Bleeding
[2017-09-08] MEDS: BISACODYL 5 MG TABLET PO PRN (03:20)
[2017-09-08 07:04] LABS: Basophils # 0.1 10*3/uL (0.0-0.2); Eosinophils # 0.2 10*3/uL (0.0-0.87); Hematocrit 33.7 VOL% (42.0-52.0); Hemoglobin 11.5 GM/DL (14.0-18.0); Immature Granulocytes % 0.3 %; Immature Granulocytes Absolute 0.02 #; Lymphocytes # 1.5 10*3/uL (1.4-4.0); Lymphocytes % 26.3 % (21.2-54.2); Mean Corpuscular HGB Conc 34.1 GM/DL (32-36); Mean Corpuscular Hemoglobin 31 PG (27-34); Mean Corpuscular Volume 91.8 FL (87-102); Mean Platelet Volume 11.1 FL (9.6-12.0); Monocytes # 0.6 10*3/uL (0.11-0.8); Monocytes % 10.1 % (1.7-12.7); Neutrophils # 3.4 10*3/uL (1.4-7.4); Neutrophils % 58.3 % (38.7-73.9); Platelet Count 223 T/CUMM (130-400); Red Blood Count 3.67 MC/CUMM (3.8-5.5); Red Cell Distribution Width 13.2 % (9.3-17.3); White Blood Count 5.8 T/CUMM (4-12)
[2017-09-08 07:13] LABS: INR 1.4; PT Patient Result 14.5 SECS
[2017-09-08 07:36] LABS: Calcium 9.3 MG/DL (8.5-10.1); Magnesium 1.9 MG/DL (1.8-2.4); Potassium 3.4 MMOL/L (3.5-5.1)
[2017-09-08 07:40] LABS: Bilirubin,Total 0.5 MG/DL (0.2-1.0); Calcium 9.3 MG/DL (8.5-10.1); Osmolality,Calculated 289.7 MOS/KG (273-304); Potassium 3.4 MMOL/L (3.5-5.1); Total Protein 6.7 G/DL (6.4-8.3)
[2017-09-08] MEDS: GLIMEPIRIDE 4 MG TABLET PO SCH (08:46)
[2017-09-08] MEDS: metOLazone 2.5 MG TABLET PO SCH (08:49)
[2017-09-08] MEDS: MONTELUKAST 10 MG TABLET PO SCH (08:49)
[2017-09-08] MEDS: FUROSEMIDE 40 MG TABLET PO SCH (08:49)
[2017-09-08] MEDS: ALLOPURINOL 100 MG TABLET PO SCH (08:49)
[2017-09-08] MEDS: ISOSORBIDE MONONITRATE 30 MG TABLET PO SCH (08:50)
[2017-09-08] MEDS: CARVEDILOL 25 MG TABLET PO SCH ×2 (08:50→21:25)
[2017-09-08] MEDS: AMIODARONE 200 MG TABLET PO SCH (08:50)
[2017-09-08] MEDS: POTASSIUM CHLORIDE 10 MEQ TABLET PO SCH (08:51)
[2017-09-08] MEDS: ASPIRIN EC 81 MG TABLET PO SCH (08:51)
[2017-09-08] MEDS: PANTOPRAZOLE 40 MG TABLET PO SCH (08:51)
[2017-09-08] MEDS: DOCUSATE SODIUM 100 MG CAPSULE PO SCH ×2 (08:51→21:25)
--- NOTE | 2017-09-08 16:56 | Sleep Medicine Progress Note ---
Assessment and Plan (1) Unspecified sleep apnea Status: Acute Assessment and plan: With negative HST evaluation, in lab polysomnography is recommended. Current Visit: Yes (2) Hypertension Status: Chronic Current Visit: Yes Qualifiers: Hypertension type: essential hypertension Qualified Code(s): I10 - Essential (primary) hypertension (3) Diabetes Status: Chronic Current Visit: Yes Qualifiers: Diabetes mellitus type: type 2 Diabetes mellitus complication status: with hyperglycemia Diabetes mellitus retirement insulin use: without intermediate teacher use Qualified Code(s): E11.65 - Type 2 diabetes mellitus with hyperglycemia (4) PAF (paroxysmal atrial fibrillation) Status: Chronic Current Visit: Yes Sleep Medicine Subjective Interval history: Patient did undergo HST evaluation last night and it was negative for overt sleep apnea. Technical issues may have been a contributing factor. He really needs to have a formal outpatient sleep study after discharge. I reviewed these findings with him and he will be set up for diagnostic/titration sleep study as indicated. Exam (Progress Note) - Constitutional Vitals: Period Temp Pulse Resp BP Sys/Xavier Pulse Ox Last 24 Hr 97.2 F-97.9 F 59-71 18-23 122-156/66-90 91-96 Results - Labs CBC & BMP: 09/08/17 04:30 09/08/17 04:30 Lab Results: I have reviewed the past 24 hour labs
[2017-09-08] MEDS: ACETAMINOPHEN 325 MG TABLET PO PRN (18:29)
[2017-09-08] MEDS: DONEPEZIL 5 MG TABLET PO SCH (21:25)
[2017-09-08] MEDS: PRAVASTATIN 40 MG TABLET PO SCH (21:26)
--- NOTE | 2017-09-08 22:34 | Internal Med Progress Note ---
Assessment and Plan (1) Hypertension Status: Chronic Current Visit: Yes Qualifiers: Hypertension type: essential hypertension Qualified Code(s): I10 - Essential (primary) hypertension (2) Diabetes Status: Chronic Current Visit: Yes Qualifiers: Diabetes mellitus type: type 2 Diabetes mellitus complication status: with hyperglycemia Diabetes mellitus termite renewal inspector insulin use: without senior living use Qualified Code(s): E11.65 - Type 2 diabetes mellitus with hyperglycemia (3) Obstructive sleep apnea Status: Chronic Current Visit: Yes (4) Chest pain Problem details: atypical Status: Acute Current Visit: Yes Qualifiers: Chest pain type: other chest pain Qualified Code(s): R07.89 - Other chest pain; R07.8 - Other chest pain (5) Elevated troponin Status: Chronic Current Visit: Yes (6) Chronic renal insufficiency, stage III (moderate) Problem details: Dr. Banegas Status: Chronic Current Visit: Yes Internal Medicine - PN: Subj Interval history: Mr. Mishra is a 81 year old male with history of DM, HTN, chronic renal insufficiency, peripheral edema, COPD, asthmatic bronchitis, mild cardiomyopathy with LVEF 45%, severe left ventricular hypertrophy, paroxysmal atrial fibrillation and on Coumadin therapy, OA with joint replacements, dementia, who presented to ER with persistent intermittent chest pain. Have consulted Dr. Gomez to further evaluate. He has chronically elevated troponins. Also, consulting Dr. Tristan to further evaluate high suspicion of sleep apnea. September 06: Feeling better today and more alert. September 07: Undergoing hospital sleep study tonight September 08: Will need outpatient sleep study; chest pain has resolved and he can be discharged tomorrow. Exam (Progress Note) - Constitutional Vitals: Period Temp Pulse Resp BP Sys/Xavier Pulse Ox Last 24 Hr 97.2 F-97.9 F 59-71 18-20 122-156/66-90 91-96 Exam: General appearance: no acute distress - Respiratory Respiratory exam: Present: clear to auscultation bilaterally - Cardiovascular Cardiovascular exam: Present: regular rate and rhythm - GI/Abdominal GI/Abdominal exam: Present: soft. Absent: tenderness - Extremities Exam Extremities exam: Present: no edema - Neurological Exam Neurological exam: Present: alert - Psychiatric Psychiatric exam: Present: normal mood - Skin Skin exam: Present: warm, dry Results - Labs CBC & BMP: 09/08/17 04:30 09/08/17 04:30 Quality Measures - VTE Contraindication to Pharmacological VTE Prophylaxis: High Risk of Bleeding
[2017-09-09] MEDS ORDERED: POTASSIUM CHLORIDE 20 MEQ TABLET PO SCH (02:41)
[2017-09-09 07:13] LABS: Calcium 9.6 MG/DL (8.5-10.1); Osmolality,Calculated 286.8 MOS/KG (273-304); Potassium 3.4 MMOL/L (3.5-5.1)
[2017-09-09] MEDS: AMIODARONE 200 MG TABLET PO SCH (09:10)
[2017-09-09] MEDS: MONTELUKAST 10 MG TABLET PO SCH (09:10)
[2017-09-09] MEDS: GLIMEPIRIDE 4 MG TABLET PO SCH (09:10)
[2017-09-09] MEDS: PANTOPRAZOLE 40 MG TABLET PO SCH (09:10)
[2017-09-09] MEDS: metOLazone 2.5 MG TABLET PO SCH (09:10)
[2017-09-09] MEDS: FUROSEMIDE 40 MG TABLET PO SCH (09:10)
[2017-09-09] MEDS: DOCUSATE SODIUM 100 MG CAPSULE PO SCH (09:11)
[2017-09-09] MEDS: ISOSORBIDE MONONITRATE 30 MG TABLET PO SCH (09:11)
[2017-09-09] MEDS: ALLOPURINOL 100 MG TABLET PO SCH (09:11)
[2017-09-09] MEDS: ASPIRIN EC 81 MG TABLET PO SCH (09:11)
[2017-09-09] MEDS: CARVEDILOL 25 MG TABLET PO SCH (09:11)
[2017-09-09] MEDS: WARFARIN 4 MG TABLET PO SCH (11:17)
--- NOTE | 2017-09-09 15:55 | Discharge Summary ---
Hospital Course - Hospital Course Hospital Course: Mr. Mishra is a 81 year old male with history of DM, HTN, chronic renal insufficiency, peripheral edema, COPD, asthmatic bronchitis, mild cardiomyopathy with LVEF 45%, severe left ventricular hypertrophy, paroxysmal atrial fibrillation and on Coumadin therapy, OA with joint replacements, dementia, who presented to ER with persistent intermittent chest pain. He will have outpatient sleep study and follow up with Dr. Gomez for cardiomyopathy. Also, he will follow up with Dr. Banegas for chronic renal insufficiency. Diagnosis - Discharge Diagnosis (1) Hypertension Status: Chronic (2) Diabetes Status: Chronic (3) Obstructive sleep apnea Status: Chronic (4) Chest pain Status: Resolved (5) Elevated troponin Status: Chronic (6) Chronic renal insufficiency, stage III (moderate) Status: Chronic Discharge Plan - Discharge Data Disposition: Home Health Service Condition at Discharge: Stable Discharge Diet: diabetic diet Activity: increase activity as tolerated - Discharge Medications New Aspirin EC Tab 81 mg PO DAILY #30 tablet Bisacodyl Tab [Dulcolax Tab] 5 mg PO Q4H PRN tablet PRN Reason: Constipation Carvedilol [Coreg] 25 mg PO BID #60 tablet cloNIDine TAB [Catapres Tab] 0.2 mg PO QID #120 tablet Isosorbide Mononitrate [Imdur] 30 mg PO DAILY #30 tablet Potassium Chloride Cap/Tab [K Dur] 20 meq PO DAILY #30 tablet Allopurinol [Zyloprim] 200 mg PO DAILY #30 tablet Amiodarone Tab [Cordarone Tab] 100 mg PO DAILY #30 tablet Docusate Sodium Cap [Colace Cap] 100 mg PO BID capsule Continue metOLazone [Metolazone] 2.5 mg PO DAILY Pravastatin [Pravachol] 40 mg PO BEDTIME hydrALAZINE TAB [Apresoline Tab] 100 mg PO TID Montelukast Tab [Singulair Tab] 10 mg PO DAILY Tamsulosin [Flomax] 0.4 mg PO DAILY Glimepiride [Amaryl] 4 mg PO DAILY W/BREAKFAST Donepezil [Aricept] 5 mg PO BEDTIME Albuterol Sulfate [Ventolin HFA] 2 puffs PO Q4H PRN PRN Reason: Wheezing Warfarin [Coumadin] 4 mg PO MOWEFR Furosemide Tab [Lasix Tab] 40 mg PO DAILY Discontinued Amiodarone HCl [Pacerone] 200 mg PO DAILY cloNIDine TAB [Catapres Tab] 0.1 mg PO BEDTIME Carvedilol [Coreg] 12.5 mg PO DAILY Potassium Chloride 8 meq PO TID - Follow Up or Referral Follow Up: Lucille Roberson DO [Physician] - Megan Tristan MD [Physician] - Gt Banegas MD [Physician] - Chandu Gomez MD [Physician] - - Forms/Instructions Additional Discharge Instructions: Follow up with Dr. Jian Roberson within 1-2 weeks at clinic and with Dr. Banegas per appointment set; follow up with Dr. Tristan for outpatient sleep study; follow with Dr. Gomez in clinic within 6-8 weeks for cardiomyopathy. Exam - Constitutional Vitals: Period Temp Pulse Resp BP Sys/Xavier Pulse Ox Last 24 Hr 97.6 F-98.3 F 60-66 16-20 112-179/59-80 94-97 Exam: General appearance: no acute distress - Respiratory Respiratory exam: Present: clear to auscultation bilaterally - Cardiovascular Cardiovascular exam: Present: regular rate and rhythm - GI/Abdominal GI/Abdominal exam: Present: soft. Absent: tenderness - Extremities Exam Extremities exam: Present: no edema - Neurological Exam Neurological exam: Present: alert - Psychiatric Psychiatric exam: Present: normal mood - Skin Skin exam: Present: warm, dry Discharge Results Labs on day of discharge: Labs from last 24 hours 09/09/17 05:03 Sodium 137 Potassium 3.4 L Chloride 99 Carbon Dioxide 29 Anion Gap 12.4 BUN 43 H Creatinine 2.70 H GFR Calculation 31 BUN/Creatinine Ratio 15.00 Glucose 155 H Calculated Osmolality 286.8 Calcium 9.6 DS: Provider Date of admission: 09/04/17 21:14 Primary care physician: . No PCP Attending physician on admission: Lucille Roberson DO Consults: 09/04/17 21:14 Consult to Case Mgmt/Social Srvs [CONS] Routine Reason for Case Mgmt/Social Srvs: Discharge Planning 09/05/17 11:15 Consult to Physician [CONS] Routine Comment: Consulting Provider: Chandu Gomez Consulting Provider Notified: Yes When should Consulting Provider be notified: Now Consult to Specialist Group: Cardiology When should Consulting Provider be notified: Now Person Notified: Jason Date Notified: 09/05/17 Time Notified: 11:15 09/05/17 23:32 Consult to Physician [CONS] Routine Comment: suspicion sleep apnea; right sided chest pain Consulting Provider: Megan Tristan Consulting Provider Notified: Yes When should Consulting Provider be notified: Now 09/06/17 22:57 Consult to Physician [CONS] Routine Comment: chronic renal insufficiency Consulting Provider: Gt Banegas Consulting Provider Notified: Yes When should Consulting Provider be notified: Now Consult to Specialist Group: Nephrology When should Consulting Provider be notified: Now Person Notified: BRUCE Date Notified: 09/07/17 Time Notified: 09:36 Discharging clinician: Lucille Roberson DO Expected date of discharge: 09/09/17
[2017-09-09 16:59] VITALS: BP 126/56
== END 2017-09-09 18:04 | disposition home health service (06) | DRG 313 ==
LOC: EDBD → N.ED 17:50 → N.EDINP 21:14 → N.4E 21:40
PROVIDERS: ADMIT Internal Medicine; ATTEND Internal Medicine